=== PATIENT | male | born 1990 | race Caucasian/White ===

== ENCOUNTER 2023-09-13 16:45 | Emergency (ER) | payer OTHER, SELFPAY ==
[2023-09-13 16:46] VITALS: BP 137/89
--- NOTE | 2023-09-13 18:01 | ED.GENMED ---
History of Present Illness
General
Chief Complaint: Esophageal Problem
Source: patient and family
Time Seen by Provider: 09/13/23 16:58
History of Present Illness
History of Present Illness:
31-year-old male presents after he ate a piece of chicken when he got home from work because he was hungry and it got stuck. The patient states that he ate it fast because he was hungry. States that in the waiting room the food has passed and he
feels normal. Has not seen GI in about 2 years. He has a history of esophageal obstruction
Past History
Past History
ED Past Medical History: Other (Esophageal obstruction/stricture)
ED Past Surgical History: Other (Hernia)
Social History
Tobacco: Non-smoker
Alcohol: Occasional
Drug: None
Personal:
Living: with family
Employment: Employed
Family History
Family History: Other (Noncontributory)
Phy Exam
Physical Exam
Physical Exam:
CONSTITUTIONAL Vital signs reviewed, Patient alert and oriented to person, place and time. Well-appearing
HEAD atraumatic, normocephalic.
EYES eyelids normal to inspection, Extraocular muscles intact, Conjunctiva normal, Sclera normal.
NECK normal range of motion, Trachea midline, no jugular venous distention.
RESP no respiratory distress
BACK No obvious deformities
UPPER EXTREMITY Gross Range of motion normal, gross motor strength normal
LOWER EXTREMITY Gross range of motion normal, Gross motor strength normal
NEURO Speech normal, No focal motor deficits include, Mentor coma scale 15, Memory normal, Cranial Nerves intact to screening exam.
SKIN Skin warm, dry, and normal in color.
PSYCHIATRIC Patient oriented to person place and time, Normal affect.
Course
Vital Signs
Initial and Last Documented VS:
Initial Vital Signs
Temp Pulse Resp BP Pulse Ox
98.1 F 99 16 137/89 99
09/13/23 16:46 09/13/23 16:46 09/13/23 16:46 09/13/23 16:46 09/13/23 16:46
Last Documented Vital Signs
Temp Pulse Resp BP Pulse Ox
98.1 F 99 16 137/89 99
09/13/23 16:46 09/13/23 16:46 09/13/23 16:46 09/13/23 16:46 09/13/23 16:46
MDM/Problems Addressed
MDM/Problems Addressed:
Esophageal obstruction resolved
*Pulse Oximetry
Patient hypoxic: no
*Critical Care Note
Total Time (30-74mins, 75-104mins- exclusive of procedures): Not Applicable
Data Reviewed
Source: patient and family
Prescriptions/Medications Considered But Not Given:
Consider glucagon but food has passed
Patient Management
Escalation/DeEscalation of care consider admission/obs:
Food has passed. No vomiting. Okay for discharge and outpatient follow-up with GI. Recommended that he follow-up for repeat endoscopy. Patient agrees. Recommended soft foods and chewing at least 20 times per swallow
ED Attending Note
-
Portions of this chart may have been created with voice recognition software.� Occasional wrong word or��sound alike� substitutions may have occurred due to the inherent limitations of voice recognition software.
Discharge Plan
Departure
Patient Disposition: Home (Routine Discharge)
Date of Disposition: 09/13/23
Time of Disposition: 18:01
Patient with high blood pressure during this ER visit?: No
Discharge Problem:
Food impaction of esophagus
Instructions: Swallowed Objects, Adult (DC)
Prescriptions:
No Action
sertraline 25 MG tablet
25 mg PO DAILY
multivitamin with folic acid [Tab-A-Enmanuel] 1 TABLET tablet
1 tab PO DAILY
Referrals:
Jhony Patel MD [Family Provider] -
Activity Restrictions/Additional Instructions:
Please be sure to chew at least 20 times before swallowing. Please see GI in follow-up as discussed
Interventions
Interventions:
*General Assessment Last Done: 09/13/23 16:46
*ED COVID-19 Vaccine History Last Done: 09/13/23 16:46
Discharge Date and Time
Print Language: SWAZI
[2023-09-13 18:10] VITALS: BP 137/89
== END 2023-09-13 18:13 | disposition home or self-care (01) ==
LOC: EMR 16:45
PROVIDERS: EMERGENCY PHYSICIAN Emergency Medicine; FAMILY PHYSICIAN Internal Medicine
DX: T18.128A Food in esophagus causing other injury, initial encounter (principal); W44.F3XA Food entering into or through a natural orifice, initial encounter
CPT/HCPCS: 99282

== ENCOUNTER 2024-01-24 16:22 | Day surgery (SDC) | payer OTHER, SELFPAY ==
[2024-01-24] VITALS (8 sets, daily range): BP systolic 126–158; BP diastolic 81–100; BMI 25.0
--- NOTE | 2024-01-24 13:38 | ED.GENMED ---
History of Present Illness
General
Chief Complaint: Esophageal Problem
Source: patient
Exam Limitations: none
Time Seen by Provider: 01/24/24 13:31
Nursing documentation reviewed up to this point in time: agreed with
History of Present Illness
History of Present Illness:
PT IS A33 Y/O M
with h/o esosinophilic esophagitis
no longer taking meds (budesonide) becuase it was expensive
multiple episodes of previous food bolus impactions
here after eating hoagie and felt last 2 bites get sttuck today at 1230 pm
pt has since been regurgitating saliva and spitting into a bottle
he has some nausea, and some discomfort
says that each other time he has had this, he has required endospcopy
glucagon doesn't usually help
Past History
Past History
ED Past Medical History: Other (Esophageal obstruction/stricture)
ED Past Surgical History: Other (Hernia)
Social History
Tobacco: Non-smoker
Alcohol: Occasional
Drug: None
Personal:
Living: with family
Employment: Employed
Family History
Family History: Other (Noncontributory)
Review of Systems
Review of Systems
Allergies reviewed?: Yes
All Other Systems: Not applicable
Phy Exam
Physical Exam
Physical Exam:
GENERAL: Alert , in no apparent distress, spitting into a bottle
EYE: pupils equal and reactive
NECK: Supple
ENT: o/p clr, mmm.
CARDIAC: Regular rate and rhythm .
LUNGS: Clear breath sounds bilaterally, no acute respiratory distress, no wheezes/rales/rhonchi
ABDOMEN: Soft, without focal tenderness, no r/g, no cvat, normal bowel sounds
NEUROLOGICAL: Alert and oriented, no focal neuro deficits
SKIN: Warm and dry, skin intact.
MUSCULOSKELETAL: No edema, well perfused. neg leonard's sign
PSYCH: Normal and appropriate interaction.
Course
Orders/Labs/Results
Orders:
Orders
01/24/24 13:52
Complete Blood Count/With Diff Urgent
Comprehensive Metabolic Panel Urgent
PTT Urgent
Prothrombin Time Urgent
01/24/24 13:57
Glucagon [GlucaGen] 1 mg IV NOW STA
01/24/24 14:09
Ondansetron Injectable [Zofran] 4 mg IV NOW STA
01/24/24 14:43
Glucagon [GlucaGen] 1 mg IV NOW STA
01/24/24 16:17
HYDROmorphone [Dilaudid] 0.25 mg IV PACU-Q5MPRN PRN
HYDROmorphone [Dilaudid] 0.5 mg IV PACU-Q5MPRN PRN
Meperidine [Demerol] 12.5 mg IV PACU-Q5MPRN PRN
Ondansetron Injectable [Zofran] 4 mg IV PACU-ONCEPRN PRN
Prochlorperazine [Compazine] 5 mg IV PACU-ONCEPRN PRN
Notify MD As Directed
Notify physician if: for SDS patients with known or suspected sleep obstructive sleep apnea, monitor in the
PACU.
Notify MD for any apneic/desaturation episodes
O2 Therapy [RESP] Urgent
Titrate/Wean O2 to maintain O2 sat greater than (%): 92
Special Instructions: -Provide supplemental oxygen to achieve O2 sat of 92% or greater.
-After 15 min, may wean O2 and discontinue if patient is able to maintain O2 sat of 92%
or greater during recovery period.
If patient is a discharge home, without oxygen therapy, notify anestheiologist if
unable to maintain O2 SAT of 92% or greater on room air for MD clearance.
01/24/24 16:26
Dexamethasone Sod Phosphate [Decadron] 20 mg .ROUTE .STK-MED ONE
Lidocaine HCl/Pf [Xylocaine-Mpf 1% Vial] 50 mg .ROUTE .STK-MED ONE
Propofol [Diprivan] 20 ml .ROUTE .STK-MED
Rocuronium [place] [Rocuronium] 50 mg .ROUTE .STK-MED ONE
01/24/24 16:27
Fentanyl Citrate/Pf [Sublimaze] 100 mcg .ROUTE .STK-MED ONE
Midazolam HCl [Versed] 2 mg .ROUTE .STK-MED ONE
Ondansetron Injectable [Zofran] 4 mg .ROUTE .STK-MED ONE
01/24/24 16:30
Normosol (Mult Electrolytes) [Normosol-R/Plasmalyte-A] 1,000 ml IV PER PROTOCOL
Succinylcholine Chloride [Succinylcholine] 200 mg .ROUTE .STK-MED ONE
01/24/24 18:03
Propofol [Diprivan] 40 ml .ROUTE .STK-MED
Abnormal Lab Results
01/24/24
13:52
Lymphocytes % 20.1 L %
(20.5-51.1)
Carbon Dioxide 32 H mmol/L
(22-30)
BUN 21 H mg/dl
(9-20)
Glucose 107 H mg/dl
(70-99)
Calcium 10.3 H mg/dl
(8.4-10.2)
Albumin 5.1 H g/dl
(3.5-5.0)
01/24/24 13:52
01/24/24 13:52
Vital Signs
Initial and Last Documented VS:
Initial Vital Signs
Temp Pulse Resp BP Pulse Ox
36.8 C 116 16 158/100 99
01/24/24 13:26 01/24/24 13:26 01/24/24 13:26 01/24/24 13:26 01/24/24 13:26
Last Documented Vital Signs
Temp Pulse Resp BP Pulse Ox
36.8 C 85 14 127/87 95
01/24/24 17:20 01/24/24 17:40 01/24/24 17:40 01/24/24 17:40 01/24/24 17:40
MDM/Problems Addressed
Differential Diagnosis Includes:
ESOPHAGEAL FOOD BOLUS, ESOPHAGITIS
MDM/Problems Addressed:
33 y/o M with esosinophilic esophagtiis; h/o esophageal food impaction requiring endoscopy 4 times previously
was eating hoagie at 1230 and felt last 2 bites get stuck
he is spitting up saliva;
no resp distress
glucagon x 1 attempted
seen by GI
requests 2nd dose of glucagon and if no resolution, plan fo rOR endoscopy around 5 pm
*Critical Care Note
Total Time (30-74mins, 75-104mins- exclusive of procedures): Not Applicable
ED Attending Note
-
Portions of this chart may have been created with voice recognition software.� Occasional wrong word or��sound alike� substitutions may have occurred due to the inherent limitations of voice recognition software.
Discharge Plan
Departure
Patient Disposition: Admit
Date of Disposition: 01/24/24
Time of Disposition: 15:06
Admit to: GI lab
Presentation/result/management discussed w/ accepting MD/DO: gi francisco
Condition: Fair
Discharge Problem:
Food impaction of esophagus
Interventions
Interventions:
*Risk Screen - Suicide Last Done: 01/24/24 13:26
*General Assessment Last Done: 01/24/24 13:26
*Neglect/Abuse Screening Last Done: 01/24/24 13:35
ED- Fall Risk Assessment Last Done: 01/24/24 13:35
*ED COVID-19 Vaccine History Last Done: 01/24/24 13:26
*Nursing Disposition Last Done: 01/24/24 15:40
DC-Assjax-Kgsadftsbd Assessment Last Done: 01/24/24 13:44
ED-EENT Assessment Last Done: 01/24/24 13:44
Discharge Date and Time
Discharge Date/Time: 01/24/24 15:40
--- NOTE | 2024-01-24 13:55 | CON.GI ---
Consultation
-
Date/Time Consultation Requested: 01/24/2024,13:50
Date/Time Consultation Performed: 01/24/2024,14:51
Requesting Provider: Darlene Abreu
Performing Provider: Soledad Grace
Reason for Consultation: eosinophilic eophagitis
Medical History
Chief Complaint / HPI
Chief Complaint: Food impaction
History of Present Illness:
Patient is a 33-year-old male with history of eosinophilic esophagitis diagnosed 7 years ago and patient had 6 episodes of food impaction since then which 3 episodes were in this year. According to the patient he was in his usual state of health,
he ate a evaristo Hungarian hoagie but on his second last bite he started the feeling of something stuck in his chest and he immediately realized that he had not reviewed it enough and it was was another episode of food impaction. He tried to drink water
and swallow the food but he started to vomit water, mucus, and some small particles of food. He continued to have pain behind his chest that was stabbing in nature. He presented to emergency and then he feels that the food bolus has moved down a
little to the level of xiphisternum but still he feels that the impaction has not resolved yet.
He tries to avoid soda, acidic food, and hard meat and usually eats turkey and soft meat after chewing it well. He is allergic to shellfish and peanuts but can eat peanut butter well. He admits to being noncompliant to the medication he was
advised and feels that stress contributes to the food impaction episodes.
He had childhood asthma but it has now resolved and he does not use any inhaler. He denies any other allergies but he has not undergone the allergen test yet.
He denies any weight loss weight gain, appetite changes, insomnia, shortness of breath, palpitations, fever, chest pain, diarrhea constipation, hematemesis, difficulty initiating swallowing or heartburn.
Past Medical History
Past Medical History: Other (Childhood asthma-self resolved, eosinophilic esophagitis)
Past Surgical History: Other (Hernia)
Social History
Tobacco: Non-Smoker
Alcohol: Occasional
Drug: None
Personal:
Living: With Family
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
Family History
Family History: Sudden (History of early deaths in paternal family) and Other (History of colon cancer in grandmother at 63)
Allergies / Home Medications
Allergy/AdvReac Type Severity Reaction Status Date / Time
iodine Allergy Unknown Verified 01/24/24 13:28
�Medication �Instructions �Recorded
multivitamin with folic acid 400 1 tab PO DAILY 03/25/21
mcg tablet (Tab-A-Enmanuel)
sertraline 25 mg tablet 25 mg PO DAILY 03/25/21
Review of Systems
-
All other systems: A 12 pt ROS was Negative except as stated above in HPI
Vital Signs
Temp Pulse Resp BP Pulse Ox
98.3 F 116 16 158/100 99
01/24/24 13:26 01/24/24 13:26 01/24/24 13:26 01/24/24 13:26 01/24/24 13:26
Physical Exam
Exam
General: Well Developed, Comfortable and Other (Provides full history himself, complains of stabbing pain at the level of xiphisternum)
HEENT: Anicteric and Moist Mucous Membranes
Respiratory: Clear and Other ( no rhonchi rales or wheezes)
Cardiac: S1/S2 and Regular Rhythm
GI: Soft, Non Tender and Normal Bowel Sounds
Genito-urinary: No Costovertebral Tender
Musculoskeletal: No Clubbing, No Cyanosis and No Edema
Skin: Warm and Dry
Neuro: Oriented and No Motor Deficits
Psych: Calm
Results
Diagnostic Image Results:
Prior GI Procedures:
EGD: 09/09/21�
Impression: - Esophageal mucosal changes secondary to eosinophilic
esophagitis. Biopsied.
- Z-line irregular, 40 cm from the incisors. Biopsied.
- Erythematous mucosa in the stomach.
- A single gastric polyp. Biopsied.
- Normal examined duodenum.
06/10/21�
Impression: - Esophageal mucosal changes secondary to eosinophilic
esophagitis. Biopsied.
- Gastric mucosal atrophy. Biopsied.
- Erythematous mucosa in the stomach.
- Normal examined duodenum. Biopsied.
03/25/21
Impression: - Esophageal mucosal changes suggestive of
eosinophilic esophagitis. Biopsied. Food had passed
seen in fundus of stomach.
- A single gastric polyp. Biopsied.
- Normal stomach.
- Normal examined duodenum
Colonoscopy:
None
Assessment / Plan
-
IMPRESSION
Patient is a 33-year-old male with past medical history of eosinophilic esophagitis admitted with multiple times to [facility] with history of food impaction. According to the patient he had 3 episodes of food impaction in this year.
Currently presented after eating an Hungarian hoagie, was able to eat whole thing before he started to have feeling of stabbing chest pain behind sternum, tried to sip water but resulted in vomiting. At presentation patient had a lot of regurg and
vomiting and passed out a few bites of food. The patient reports that the food bolus has moved down to the level of xiphisternum but still he feels the feeling of impaction in his chest.
Not on any maintenance regime, takes an antihistamine [id number]
Did not comply with the advised PPI
History of multiple endoscopies consistent with eosinophilic esophagitis
Allergic to shellfish and peanuts
Avoids hard meat, peanut, shellfish, and eat small bites
Never did food allergy test
ASSESSMENT/PLAN
Food impaction at the level of xiphisternum
Give second dose of glucagon
Endoscopic removal of the food bolus
Give PPI trial for at least 8 weeks
Can try budesonide slurry till the patient undergoes food allergen testing
Communicated with the patient the complications of untreated EOE
Explained the treatment options and plan
Gastroenterology will follow
-
-
Thank you for consultation and allowing me to participate in the patient's care. Please call the consulting application engineer GI physician during the after hours with any questions or concerns.
[2024-01-24] MEDS: GlucaGen 1 MG IV ×2 (14:03→14:49)
[2024-01-24 14:10] LABS: % Basophils 1.1 % (0-2); % Eosinophils 3.3 % (0-6); % Immature Granulocytes 0.4 % (0-0.5); % Lymphocytes 20.1 % (20.5-51.1); % Monocytes 7.8 % (1.7-9.3); % Neutrophils 67.3 % (42.2-75.2); Absolute Basophils 0.1 10^3/uL (0-0.2); Absolute Eosinophils 0.3 10^3/uL (0-0.7); Absolute Lymphocytes 1.5 10^3/uL (1.2-3.4); Absolute Monocytes 0.6 10^3/uL (0.1-0.6); Absolute Neutrophils 5.1 10^3/uL (1.4-6.5); Hematocrit 45.4 % (39.0-52.0); Hemoglobin 15.7 g/dL (13.0-18.0); Mean Corp Hgb Conc. 34.6 g/dL (33.0-37.0); Mean Corpuscular Hgb 29.9 pg (27.0-31.0); Mean Corpuscular Volume 86.5 fL (80.0-94.0); Mean Platelet Volume 9.8 fL (7.4-10.4); Nucleated Red Blood Cells % 0 % (-); Platelet Count 215 10^3/uL (130-400); Red Blood Cell Count 5.25 10^6/uL (4.70-6.10); White Blood Cell Count 7.6 10^3/uL (4.8-10.8)
[2024-01-24] MEDS: ZOFRAN 4 MG IV (14:11)
[2024-01-24 14:19] LABS: ALT (SGPT) 23 U/L (0-50); AST (SGOT) 26 U/L (17-59); Albumin 5.1 g/dl (3.5-5.0); Alkaline Phosphatase 49 U/L (38-126); Blood Urea Nitrogen 21 mg/dl (9-20); Calcium 10.3 mg/dl (8.4-10.2); Carbon Dioxide 32 mmol/L (22-30); Chloride 101 mmol/L (98-107); Estimated Creatinine Clearance 110 ml/min; Glucose 107 mg/dl (70-99); Potassium 4.5 mmol/L (3.5-5.1); Sodium 144 mmol/L (135-145); Total Bilirubin 0.8 mg/dl (0.2-1.3); Total Protein 8.2 g/dl (6.3-8.2); eGFR > 60.00
[2024-01-24 14:51] LABS: APTT 31.5 Sec (23.4-35.0)
[2024-01-24 15:27] LABS: INR 0.96; PT 13.1 Sec (11.4-14.6)
== END 2024-01-24 17:50 | disposition home or self-care (01) ==
LOC: SDS 16:22
PROVIDERS: Internal Medicine Gastroenterology; Physician Assistant; ATTENDING PHYSICIAN Internal Medicine Gastroenterology; EMERGENCY PHYSICIAN Student in an Organized Health Care Education/Training Program; FAMILY PHYSICIAN Internal Medicine
PROC: 0DC38ZZ Extirpation of Matter from Lower Esophagus, Via Natural or Artificial Opening Endoscopic (ICD-10-PCS; 2024-01-24)
DX: T18.128A Food in esophagus causing other injury, initial encounter (principal); T18.2XXA Foreign body in stomach, initial encounter; K20.0 Eosinophilic esophagitis; K31.7 Polyp of stomach and duodenum
CPT/HCPCS: 43247; 80053; 85025; 85610; 85730; 96374; 96375; 96376; 99285; J1610